=== PATIENT | male | born 1990 | race Caucasian/White ===

== ENCOUNTER 2020-10-18 23:00 | Emergency (ER) | payer SELFPAY ==
[~2020-10-18] VITALS: Ht 182.8 cm; Wt 90.6 kg
[2020-10-18 23:06] VITALS: BP 130/91
--- NOTE | 2020-10-18 23:13 | ED Headache ---
General Chief Complaint: Head/Cervical Problems Stated Complaint: HEADACHE Source: patient Exam Limitations: no limitations History of Present Illness Date Seen by Provider: Oct 18, 2020 Time Seen by Provider: 23:13 Initial Comments 30-year-old male presents with headache. Headache started approximately 30 minutes prior to arrival. Patient reports he has a history of headaches. That this started 30 minutes prior to arrival. He did not try anything for it. Patient reports he was recently seen at [facility] and told it was a "sinus headache" was started on Flonase and given some steroids. Reports he is done with the steroids. Patient reports some photophobia. Patient denies any fever, chills, cough, sore throat. Allergies and Home Medications Allergies Coded Allergies: No Known Drug Allergies (Unverified , 10/18/20) Patient Home Medication List Home Medication List Reviewed: Yes Review of Systems Review of Systems Constitutional: No chills, No fever Eyes: Blurred Vision, Photophobia Respiratory: no symptoms reported Cardiovascular: no symptoms reported Genitourinary: no symptoms reported Musculoskeletal: no symptoms reported Skin: no symptoms reported Psychiatric/Neurological: Headache Past Elrjgmg-Mbsgzg-Gjfkvp Hx Past Med/Social Hx: Reviewed Nursing Past Med/Soc Hx Physical Exam Vital Signs Vital Signs - First Documented 10/18/20 23:06 Temp 36.3 Pulse 77 Resp 18 B/P (MAP) 130/91 (104) Pulse Ox 99 O2 Delivery Room Air Capillary Refill : Height, Weight, BMI Height: '" Weight: lbs. oz. kg; BMI Method: General Appearance: moderate distress HEENT: PERRL/EOMI Neck: full range of motion, supple Cardiovascular: regular rate, rhythm Respiratory: lungs clear, normal breath sounds Gastrointestinal: non tender, soft Extremities: normal range of motion, normal inspection Psychiatric: alert, oriented x 3 Crainal Nerves: normal hearing, normal speech, PERRL Coordination/Gait: normal gait Motor/Sensory: no motor deficit Skin: tattoos/piercings Progress/Results/Core Measures Results/Orders My Orders Orders - GINGER VAZQUEZ DO Ketorolac Injection (Toradol Injection) (10/18/20 23:20) Metoclopramide Injection (Reglan Injecti (10/18/20 23:20) Diphenhydramine Injection (Benadryl Inje (2/27/21 23:20) Ketorolac Injection (Toradol Injection) (10/18/20 23:19) Metoclopramide Injection (Reglan Injecti (10/18/20 23:19) Diphenhydramine Injection (Benadryl Inje (10/18/20 23:19) Vital Signs/I&O 10/18/20 23:06 Temp 36.3 Pulse 77 Resp 18 B/P (MAP) 130/91 (104) Pulse Ox 99 O2 Delivery Room Air Departure Impression Primary Impression: Headache Qualified Codes: R51.9 - Headache, unspecified Disposition: HOME, SELF-CARE Condition: Stable Departure-Patient Inst. Referrals: NO,LOCAL PHYSICIAN (PCP/Family) Primary Care Physician Patient Instructions: Headache, Adult (DC) Add. Discharge Instructions: Follow-up with your primary care provider next week for continuation of care. If your headaches start becoming more frequent please follow-up with your primary care provider for long-term headache management and possible outpatient imaging if warranted. All discharge instructions reviewed with patient and/or family. Voiced understanding. GINGER VAZQUEZ DO Oct 18, 2020 23:13
[2020-10-18] MEDS ORDERED: diphenhydrAMINE 50 MG/ML INJ (BENADRYL) ONE (23:19)
[2020-10-18] MEDS ORDERED: KETOROLAC 60 MG/2 ML VIAL ONE (23:19)
[2020-10-18] MEDS ORDERED: METOCLOPRAMIDE INJ 10 MG/2 ML (REGLAN) ONE (23:19)
[2020-10-18] MEDS ORDERED: diphenhydrAMINE 50 MG/ML INJ (BENADRYL) IM STA (23:20)
[2020-10-18] MEDS ORDERED: METOCLOPRAMIDE INJ 10 MG/2 ML (REGLAN) IM STA (23:20)
[2020-10-18] MEDS ORDERED: KETOROLAC 60 MG/2 ML VIAL IM STA (23:20)
== END 2020-10-18 23:49 | disposition home or self-care (01) ==
LOC: ER FS 23:05
DX: R51.9 Headache, unspecified (principal)
CPT/HCPCS: 99284

== ENCOUNTER 2020-12-04 23:02 | Emergency (ER) | payer SELFPAY ==
[~2020-12-04] VITALS: Ht 182.9 cm; Wt 90.7 kg
[2020-12-04 23:10] VITALS: BP 133/78
--- NOTE | 2020-12-04 23:27 | ED Lower Extremity ---
General Chief Complaint: Lower Extremity Stated Complaint: NAIL IN LEFT FOOT Nursing Triage Note: PT ARRIVED BY PRIVATE VEHICLE WITH CHIEF COMPLAINT OF NAIL IN FOOT. PT STATED ONSET WAS 30 MINUTES AGO WHEN HE WAS MOWING HIS LWN. PT STATED HE STEPPED OVER GRASS AND STEPPED ON THE NAIL. IT IS NO LONGER IN HIS FOOT, BUT HE BROUGHT IT WITH HIM. PT STEPPED ON NAIL WITH LEFT FOOT IN THE HEAL. PT HAS CONTROLLED BLEEDING. PT STATED HE HAS HISTORY OF EAR SURGERIES, SILENT HEART ATTACK, AND IRREGULAR HEART BEAT. PT SMOKES 10 CIGS A DAY, [place], FORMER DRUG USER AND DENIES ALCOHOL. AFTER STEPPING ON NAIL HIS NEIGHBOR BROUGHT HIM HERE. PT IS ALERT, ORIENTED X 4 AND AMBULATORY. REPORT WAS GIVEN TO PROVIDER. Nursing Sepsis Screen: No Definite Risk Source: patient History of Present Illness Date Seen by Provider: Dec 04, 2020 Time Seen by Provider: 23:04 Initial Comments 30-year-old male presenting with puncture wound to his left heel. He states he was walking through grass when he stepped on a fredy nail. He did go through his shoe. He denies any diabetes or high blood pressure. He has no allergies to medications. He has mild pain to the back of his heel where he has a puncture wound. It is on the medial aspect of his left heel. he denies any other injuries. Allergies and Home Medications Allergies Coded Allergies: No Known Drug Allergies (Unverified , 10/18/20) Home Medications Levofloxacin 750 Mg Tablet, 750 MG PO DAILY Prescribed by: JAMMIE ERNANDEZ on 12/04/20 7646 Patient Home Medication List Home Medication List Reviewed: Yes Review of Systems Constitutional: No chills, No fever EENTM: no symptoms reported Respiratory: no symptoms reported Cardiovascular: no symptoms reported Gastrointestinal: no symptoms reported Genitourinary: no symptoms reported Musculoskeletal: other (mild pain at site of the puncture wound) Skin: see HPI Psychiatric/Neurological: Denies Numbness, Denies Tingling Past Krnfyze-Ywgvjm-Yuxgnh Hx Past Med/Social Hx: Reviewed Nursing Past Med/Soc Hx Patient Social History Alcohol Use: Denies Use Type Used: Cigarettes Recent Infectious Disease Expo: No Recent Hopitalizations: No Seasonal Allergies Seasonal Allergies: No Past Medical History Surgeries: Yes (ear surgeries) Respiratory: No Cardiac: No ("silent heart attack") Irregular Heartbeat Neurological: No Genitourinary: No Gastrointestinal: No Musculoskeletal: No Endocrine: No HEENT: No Cancer: No Psychosocial: No Integumentary: No Blood Disorders: No Physical Exam Vital Signs Vital Signs - First Documented 12/04/20 23:10 Temp 36.5 Pulse 93 Resp 20 B/P (MAP) 133/78 (96) Pulse Ox 98 O2 Delivery Room Air Capillary Refill : Less Than 3 Seconds Height, Weight, BMI Height: '" Weight: lbs. oz. kg; 27.00 BMI Method: General Appearance: WD/WN, no apparent distress Cardiovascular: normal peripheral pulses Feet: left foot normal range of motion, left foot abrasions/lacerations (puncture wound to left medial heel), left foot soft tissue tenderness (mild at the site of the left heel puncture wound) Neurologic/Tendon: normal sensation, normal motor functions, normal tendon functions Neurologic/Psychiatric: shareholder II-XII nml as tested, alert, oriented x 3 Skin: warm/dry Progress/Results/Core Measures Results/Orders My Orders Orders - JAMMIE ERNANDEZ MD Levofloxacin Tablet (Levaquin Tablet) (12/04/20 23:34) Dipht,Pertuss(Acell),Tet Adult (Boostrix (12/04/20 23:45) Wound Dressing-Ed (12/04/20 23:34) Medications Given in ED Current Medications Medications Dose Ordered Sig/Clara Route Start Time Stop Time Status Last Admin Dose Admin Diphtheria/ Tetanus/Acell Pertussis 0.5 ml ONCE ONCE IM 12/04/20 23:45 12/04/20 23:46 DC 12/04/20 23:52 0.5 ML Vital Signs/I&O 12/04/20 23:10 Temp 36.5 Pulse 93 Resp 20 B/P (MAP) 133/78 (96) Pulse Ox 98 O2 Delivery Room Air Blood Pressure Mean: 96 Progress Progress Note : Progress Note Wound cleaned with chlorhexidine by RN. Dress with antibiotic ointment and bandage. Update tetanus booster. Per recommendations from Up To Date online medical reference will use Levaquin for 5 day course to help cover for pseudomonas with puncture through his shoe. Counseled on follow up and return precautions. Departure Impression Primary Impression: Puncture wound of foot, left Qualified Codes: S91.332A - Puncture wound without foreign body, left foot, initial encounter Disposition: 01 HOME, SELF-CARE Condition: Stable Departure-Patient Inst. Decision time for Depature: 23:41 Referrals: YSABEL AGUILLON APRN (PCP/Family) Primary Care Physician Patient Instructions: Wound Care ED Add. Discharge Instructions: Take antibiotics to help prevent infection. Keep area clean with soap and water and apply antibiotic ointment 2-3 times a day with a bandage covering wound. If you have redness streaking up the leg, fever over 101 F, or pus draining from the wound then return or seek medical care for possible IV antibiotics All discharge instructions reviewed with patient and/or family. Voiced understanding. Scripts Levofloxacin (Levofloxacin) 750 Mg Tablet 750 MG PO DAILY for Puncture wound for 5 Days, #4 TAB 0 Refills Prov: JAMMIE ERNANDEZ MD 12/04/20 Images Extremities-Lower 1 - Puncture Wound (small puncture wound to medial left heel), Tenderness (mild tenderness to area of puncture wound. ) JAMMIE ERNANDEZ MD Dec 04, 2020 23:27
[2020-12-04] MEDS ORDERED: LEVO750T39 PO (23:41)
[2020-12-04] MEDS ORDERED: TETANUS,DIPTH,PERTUSS P/F (BOOSTRIX) 0.5 ML VIAL IM ONE (23:45)
== END 2020-12-04 23:50 | disposition home or self-care (01) ==
LOC: EDUNIT# 23:02 → ER FS 23:05
DX: S91.332A Puncture wound without foreign body, left foot, initial encounter (principal); Z23 Encounter for immunization; W45.0XXA Nail entering through skin, initial encounter
CPT/HCPCS: 90715; 99284

== ENCOUNTER 2021-05-01 17:33 | Emergency (ER) | payer SELFPAY ==
[~2021-05-01] VITALS: Ht 182.9 cm; Wt 90.9 kg
[~2021-05-01 17:33] MED LIST: LEVO750T39 PO
[2021-05-01] MEDS ORDERED: methylPREDNISolone 125 MG (Solu-MEDROL) VIAL ONE (17:40)
[2021-05-01] MEDS ORDERED: diphenhydrAMINE 50 MG/ML INJ (BENADRYL) ONE (17:40)
[2021-05-01] MEDS ORDERED: FAMOTIDINE 20MG/2ML IV (PEPCID) ONE (17:40)
--- NOTE | 2021-05-01 17:42 | ED General ---
General Stated Complaint: ALLERGIC REACTION TO MED Source of Information: Patient Exam Limitations: No Limitations History of Present Illness Date Seen by Provider: May 01, 2021 Time Seen by Provider: 17:40 Initial Comments To ER by private vehicle with reports of allergic reaction to Augmentin. He took his first pill about 20 minutes prior to the onset of this itching and burning sensation diffusely. That started about 30 minutes ago. He has some redness to his palms, slight erythema to his torso. He is on Augmentin for an ear infection and tooth infection he states. He typically takes plain amoxicill in and has taken this many times without any troubles. He has never had Augmentin before. Timing/Duration: 1-2 Days Severity: Moderate Associated Systoms: Denies Symptoms Allergies and Home Medications Allergies Coded Allergies: No Known Drug Allergies (Unverified , 10/18/20) Patient Home Medication List Home Medication List Reviewed: Yes Levofloxacin (Levofloxacin) 750 Mg Tablet, 750 MG PO DAILY Prescribed by: JAMMIE ERNANDEZ on 12/04/20 1201 Review of Systems Review of Systems Constitutional: see HPI EENTM: see HPI Respiratory: no symptoms reported Cardiovascular: no symptoms reported Genitourinary: no symptoms reported Musculoskeletal: no symptoms reported Skin: see HPI, pruritus Psychiatric/Neurological: No Symptoms Reported Hematologic/Lymphatic: No Symptoms Reported Immunological/Allergic: no symptoms reported Past Xirbpig-Tjfwzz-Twwcka Hx Seasonal Allergies Seasonal Allergies: No Past Medical History Surgeries: Yes (ear surgeries) Respiratory: No Cardiac: No ("silent heart attack") Irregular Heartbeat Neurological: No Genitourinary: No Gastrointestinal: No Musculoskeletal: No Endocrine: No HEENT: No Cancer: No Psychosocial: No Integumentary: No Blood Disorders: No Physical Exam Vital Signs Vital Signs - First Documented 05/01/21 17:35 Temp 36.8 Pulse 84 Resp 26 B/P (MAP) 125/113 (117) Pulse Ox 96 O2 Delivery Room Air Capillary Refill : Height, Weight, BMI Height: '" Weight: lbs. oz. kg; 27.00 BMI Method: General Appearance: No Apparent Distress, WD/WN Eyes: Bilateral Eye Normal Inspection, Bilateral Eye PERRL, Bilateral Eye EOMI HEENT: PERRL/EOMI, TMs Normal Neck: Full Range of Motion, Normal Inspection Respiratory: No Accessory Muscle Use, No Respiratory Distress Cardiovascular: Regular Rate, Rhythm, Normal Peripheral Pulses Gastrointestinal: Non Tender, Soft Extremity: Normal Capillary Refill, Normal Inspection Neurologic/Psychiatric: Alert, Oriented x3 Skin: Normal Color, Warm/Dry Progress/Results/Core Measures Suspected Sepsis SIRS Temperature: Pulse: Respiratory Rate: Blood Pressure / Mean: Results/Orders My Orders Orders - COLLIN SIMENTAL APRN Methylprednisolone Sod Succ (Solu-Medrol (05/01/21 17:45) Famotidine Injection (Pepcid Injection) (05/01/21 17:45) Diphenhydramine Injection (Benadryl Inje (05/01/21 17:45) Ed Iv/Invasive Line Start (05/01/21 17:39) Medications Given in ED Current Medications Medications Dose Ordered Sig/Clara Route Start Time Stop Time Status Last Admin Dose Admin Diphenhydramine HCl 25 mg ONCE ONCE IVP 05/01/21 17:45 05/01/21 17:46 DC 05/01/21 17:40 25 MG Famotidine 20 mg ONCE ONCE IVP 05/01/21 17:45 05/01/21 17:46 DC 05/01/21 17:40 20 MG Methylprednisolone Sodium Succinate 125 mg ONCE ONCE IVP 05/01/21 17:45 05/01/21 17:46 DC 05/01/21 17:40 125 MG Vital Signs/I&O 05/01/21 17:35 Temp 36.8 Pulse 84 Resp 26 B/P (MAP) 125/113 (117) Pulse Ox 96 O2 Delivery Room Air Capillary Refill : Departure Communication (Admissions) 1842-reports that he feels great, no itching no shortness of breath. Ready to go home. Impression Primary Impression: Drug reaction Disposition: 01 HOME, SELF-CARE Condition: Stable Departure-Patient Inst. Decision time for Depature: 18:43 Referrals: YSABEL AGUILLON APRN (PCP/Family) Primary Care Physician Patient Instructions: Drug Allergy Add. Discharge Instructions: 1. Take a Benadryl every 4-6 hours as needed for any recurrent itching. Scripts Amoxicillin (Amoxicillin) 500 Mg Capsule 500 MG PO TID, #21 CAP 0 Refills Prov: COLLIN SIMENTAL APRN 05/01/21 COLLIN SIMENTAL APRN May 01, 2021 17:42
[2021-05-01] MEDS ORDERED: diphenhydrAMINE 50 MG/ML INJ (BENADRYL) IVP ONE (17:45)
[2021-05-01] MEDS ORDERED: FAMOTIDINE 20MG/2ML IV (PEPCID) IVP ONE (17:45)
[2021-05-01] MEDS ORDERED: methylPREDNISolone 125 MG (Solu-MEDROL) VIAL IVP ONE (17:45)
[2021-05-01] MEDS ORDERED: AMOX500C2 PO (18:44)
[2021-05-01 18:50] VITALS: BP 120/85
== END 2021-05-01 18:50 | disposition home or self-care (01) ==
LOC: EDUNIT# 17:33 → ER 17:36
DX: L29.9 Pruritus, unspecified (principal); T36.0X5A Adverse effect of penicillins, initial encounter

== ENCOUNTER 2021-05-26 18:31 | Emergency (ER) | payer SELFPAY ==
[~2021-05-26] VITALS: Ht 182 cm; Wt 94.9 kg
[~2021-05-26 18:31] MED LIST changes: +AMOX500C2 PO
[2021-05-26] MEDS ORDERED: diphenhydrAMINE 50 MG/ML INJ (BENADRYL) IM ONE (19:15)
[2021-05-26] MEDS ORDERED: FAMOTIDINE 20 MG (PEPCID) TABLET PO ONE (19:15)
[2021-05-26] MEDS ORDERED: AZIT250T12 PO ×2 (19:19→19:53)
--- NOTE | 2021-05-26 19:20 | ED Integumentary General ---
General Chief Complaint: Allergic Reaction Stated Complaint: ALLERGIC REACTION Nursing Triage Note: PT REPORTS TO ER WITH ITCHING FROM PERCIEVED ALLERGIC REACTION FROM AMOXICILLIN. PT IS ON AMOXICILLIN FOR SINUS INFECTION. PT REPORTS THAT THIS HAPPENED LAST TIME HE TOOK THE MEDICATION. NO RESPIRATORY DIFFICULTY NOTED. Source: patient Exam Limitations: no limitations History of Present Illness Date Seen by Provider: May 26, 2021 Time Seen by Provider: 18:59 Initial Comments Patient to ER by private conveyance from home with chief complaint of itchy rash shortly after taking a dose of amoxicillin for sinus infection. Sinus infection symptoms include pressure, nasal drainage, sore throat, ear pain right worse than left starting a few days ago. No further testing was done at that time. Patient's not having swelling tongue, difficulty breathing, stridor, wheezing, difficulty swallowing or drooling. He says when he took some Augmentin a few months ago for similar issues he had a itchy rash and scratchy throat similar to this. He has never had anaphylaxis. Allergies and Home Medications Allergies Coded Allergies: amoxicillin (Verified Allergy, Unknown, 05/01/21) clavulanic acid (Verified Allergy, Unknown, 05/01/21) Patient Home Medication List Home Medication List Reviewed: Yes Amoxicillin (Amoxicillin) 500 Mg Capsule, 500 MG PO TID Prescribed by: COLLIN SIMENTAL on 05/01/21 184 Azithromycin (Azithromycin) 250 Mg Tablet, 250 MG PO UD Prescribed by: RYAN TREVINO on 05/26/21 1919 Levofloxacin (Levofloxacin) 750 Mg Tablet, 750 MG PO DAILY Prescribed by: JAMMIE ERNANDEZ on 12/04/20 2341 Review of Systems Review of Systems Constitutional: No chills, No fever, No malaise EENTM: No ear discharge, No ear pain Respiratory: No cough, No short of breath Cardiovascular: No chest pain, No edema Gastrointestinal: No abdominal pain, No constipation, No diarrhea Genitourinary: No discharge, No dysuria Musculoskeletal: No back pain, No joint pain All Other Systems Reviewed Negative Unless Noted: Yes Past Hexferf-Zejflg-Xbxhsk Hx Patient Social History Tobacco Use?: Yes Smoking Status: Current Everyday Smoker Substance use?: No Alcohol Use?: No Pt feels they are or have been: No Immunizations Up To Date First/Initial COVID19 Vaccinat: NA Second COVID19 Vaccination Frank: NONE Seasonal Allergies Seasonal Allergies: No Past Medical History Surgery/Hospitalization HX: TUBES IN EARS Surgeries: Yes (ear surgeries) Respiratory: No Cardiac: No ("silent heart attack") Irregular Heartbeat Neurological: No Genitourinary: No Gastrointestinal: No Musculoskeletal: No Endocrine: No HEENT: No Cancer: No Psychosocial: No Integumentary: No Blood Disorders: No Physical Exam Vital Signs Vital Signs - First Documented 05/26/21 18:42 Temp 36.7 Pulse 98 Resp 16 B/P (MAP) 112/75 (87) Pulse Ox 98 O2 Delivery Room Air Capillary Refill : Less Than 3 Seconds General Appearance: WD/WN, no apparent distress HEENT: PERRL/EOMI, pharynx normal, TM abnormal (R) (Bilateral clear fluid effusion with some mild injection but no loss of the anatomy on the right TM), TM abnormal (L) (Clear fluid effusion) Neck: full range of motion, supple, normal inspection Cardiovascular: normal peripheral pulses, regular rate, rhythm Respiratory: lungs clear, normal breath sounds, no respiratory distress, no accessory muscle use, other (Negative for stridor) Neurologic/Psychiatric: alert, oriented x 3 Skin: warm/dry, rash (Faint macular pruritic rash over extremities and trunk) Skin Problem Location: generalized Progress/Results/Core Measures Results/Orders My Orders Orders - RYAN TREVINO Diphenhydramine Injection (Benadryl Inje (05/26/21 19:15) Famotidine Tablet (Pepcid Tablet) (05/26/21 19:15) Medications Given in ED Current Medications Medications Dose Ordered Sig/Clara Route Start Time Stop Time Status Last Admin Dose Admin Diphenhydramine HCl 25 mg ONCE ONCE IM 05/26/21 19:15 05/26/21 19:16 DC 05/26/21 19:24 25 MG Famotidine 20 mg ONCE ONCE PO 05/26/21 19:15 05/26/21 19:16 DC 05/26/21 19:22 20 MG Vital Signs/I&O 05/26/21 18:42 Temp 36.7 Pulse 98 Resp 16 B/P (MAP) 112/75 (87) Pulse Ox 98 O2 Delivery Room Air Blood Pressure Mean: 87 Progress Progress Note #1: Time: 19:16 Progress Note We do not have any Claritin available. We will give him a shot of IM 25 mg Benadryl, Pepcid p.o. 20 mg and instruct him to keep up the antihistamine blocka de. After a observation. If he is not demonstrating any evidence of anaphylaxis then will allow him to go home and switch his antibiotics to azithromycin Progress Note #2: Time: 19:52 Progress Note On serial examination his itching is gone his rash is clearing up and he is not having any nausea, difficulty swallowing or breathing stridor or wheezing. Are going to allow him to go home and send his prescription to the pharmacy. Departure Impression Primary Impression: Allergic reaction caused by a drug Qualified Codes: T78.40XA - Allergy, unspecified, initial encounter Additional Impression: Sinus infection Qualified Codes: J01.00 - Acute maxillary sinusitis, unspecified Disposition: HOME, SELF-CARE Condition: Stable Departure-Patient Inst. Decision time for Depature: 19:53 Referrals: ADONIS DARBY MD (PCP) Primary Care Physician PATRICIO HAWKINS APRN (Family) Primary Care Physician Patient Instructions: Drug Allergy, Sinusitis, Adult (DC) Add. Discharge Instructions: Drink plenty of fluids to stay well-hydrated. supervisor multifocal lens a bottle of Claritin/loratadine or Zyrtec/cetirizine and take 10 mg once or twice a day as necessary to control the itching rash. For breakthrough itching you may take Benadryl 1 to 2 tablets every 6 hours. This may cause drowsiness. I also suggest you take Pepcid 20 mg twice a day for its antiitch properties. Pepcid is typically for acid reflux but will also help with your rash. Promptly return to the ER if you are having difficulty swallowing, breathing or stridorous sounds. Take the azithromycin as prescribed. 2 tablets today and 1 tablet every day afterwards until it is gone. All discharge instructions reviewed with patient and/or family. Voiced understanding. Scripts Azithromycin (Azithromycin) 250 Mg Tablet 250 MG PO UD, #6 TAB 0 Refills TAKE 2 TABLETS ON DAY ONE THEN TAKE 1 TABLET DAILY FOR FOUR MORE DAYS Prov: RYAN TREVINO 05/26/21 Work/School Note: Work Release Form Date Seen in the Emergency Department: May 26, 2021 Return to Work: May 28, 2021 Restrictions: No Restrictions RYAN TREVINO May 26, 2021 19:20
[2021-05-26 22:12] VITALS: BP 115/70
== END 2021-05-26 20:24 | disposition home or self-care (01) ==
LOC: EDUNIT# 18:31 → ER FS 18:32
DX: R21 Rash and other nonspecific skin eruption (principal); T36.0X5A Adverse effect of penicillins, initial encounter; J32.9 Chronic sinusitis, unspecified; I25.2 Old myocardial infarction; F17.290 Nicotine dependence, other tobacco product, uncomplicated
CPT/HCPCS: 99284

== ENCOUNTER 2021-12-05 09:05 | Emergency (ER) | payer BC, OTHER ==
[~2021-12-05] VITALS: Ht 185.4 cm; Wt 94.9 kg
[~2021-12-05 09:05] MED LIST changes: +AZIT250T12 PO
[2021-12-05 09:24] LABS: BASOPHILS # (AUTO) 0.1 10^3/uL (0.0-0.1); BASOPHILS % (AUTO) 1 % (0-10); EOSINOPHILS # (AUTO) 0.3 10^3/uL (0.0-0.3); EOSINOPHILS % (AUTO) 3 % (0-10); HEMATOCRIT 46 % (40-54); HEMOGLOBIN 15.9 g/dL (13.3-17.7); LYMPHOCYTES % (AUTO) 23 % (12-44); MEAN CORPUSCULAR HEMOGLOBIN 32 pg (25-34); MEAN CORPUSCULAR HGB CONC 34 g/dL (32-36); MEAN CORPUSCULAR VOLUME 93 fL (80-99); MEAN PLATELET VOLUME 8.7 fL (9.0-12.2); MONOCYTES # (AUTO) 0.9 10^3/uL (0.0-1.0); MONOCYTES % (AUTO) 10 % (0-12); NEUTROPHILS # (AUTO) 5.4 10^3/uL (1.8-7.8); NEUTROPHILS % (AUTO) 62 % (42-75); PLATELET COUNT 346 10^3/uL (130-400); WHITE BLOOD COUNT 8.7 10^3/uL (4.3-11.0)
--- NOTE | 2021-12-05 09:28 | ED Chest Pain ---
General Chief Complaint: Chest Pain Stated Complaint: CHEST PAIN Source: patient History of Present Illness Date Seen by Provider: Dec 05, 2021 Time Seen by Provider: 09:05 Initial Comments This 31 y/o male smoker presents w/ acute onset of non-radiating 5/10 para- central dull chest pressure at rest 2 hours [employer]. He has mild SOA with it but no cough, fever, N/V, or diaphoresis. He reports a previous "silent heart attack" in [facility] when he was still doing IVDA-meth. He claims sobriety x > 6 months. He denies HTN, DM, or known HLD. He has stress ECHO in [place] that allegedly was normal except a "scar" on his heart. No heart cath. No stent. The only drugs he nows admits to using is THC and occasion prescribed antihistamine Timing/Duration: 1-3 hours Severity/Quality: moderate Location: central Radiation: no radiation Activities at Onset: none Prior CP/Workup: cardiac cath, cardiolye scan, echocardiography, heart attack Modifying Factors: worse with antacids, worse with breathing, worse with coughing, worse with defecting, worse with eating, worse with exercise; improves with lying down; worse with morphine, worse with movement, worse with nitroglycerin, worse with oxygen, worse with palpation; improves with rest Associated Symptoms: No abdominal pain, No back pain, No diaphoresis, No fever/chills, No nausea/vomiting, No rash; shortness of breath; No syncope Allergies and Home Medications Allergies Coded Allergies: amoxicillin (Verified Allergy, Unknown, 05/01/21) clavulanic acid (Verified Allergy, Unknown, 05/01/21) Patient Home Medication List Home Medication List Reviewed: Yes Amoxicillin (Amoxicillin) 500 Mg Capsule, 500 MG PO TID Prescribed by: COLLIN SMIENTAL on 05/01/211843 Azithromycin (Azithromycin) 250 Mg Tablet, 250 MG PO UD Prescribed by: RYAN TREVINO on 05/26/211952 Levofloxacin (Levofloxacin) 750 Mg Tablet, 750 MG PO DAILY Prescribed by: JAMMIE ERNANDEZ on 12/04/20 2341 Review of Systems Review of Systems Constitutional: no symptoms reported EENTM: No Symptoms Reported Respiratory: Denies Cough; Shortness of Air; Denies Stridor, Denies Wheezing Cardiovascular: Chest Pain; Denies Edema, Denies Irregular Heart Rate, Denies Lightheadedness, Denies Palpitations, Denies Syncope Gastrointestinal: No Symptoms Reported Genitourinary: No Symptoms Reported Musculoskeletal: no symptoms reported Skin: no symptoms reported Psychiatric/Neurological: No Symptoms Reported Hematologic/Lymphatic: No Symptoms Reported Past Azaytac-Mapgkr-Psylee Hx Patient Social History Tobacco Use?: Yes Tobacco type used: Cigarettes Smoking Status: Current Everyday Smoker Use of E-Cig and/or Vaping dev: No Substance use?: Yes Substance type: Amphetamines (in past), Methamphetamine (in past), Nicotine, Marijuana Additional substance use comme: Former IV methamphetamine user. Last used 1 year ago Alcohol Use?: No Pt feels they are or have been: No Immunizations Up To Date Influenza Vaccine Up-to-Date: No; Not Current First/Initial COVID19 Vaccinat: NA Second COVID19 Vaccination Frank: NA Third COVID19 Vaccination Date: NA Seasonal Allergies Seasonal Allergies: Yes Past Medical History Surgery/Hospitalization HX: TUBES IN EARS, tympanic membrane repair. [place] Surgeries: Yes (ear surgeries) Ear Surgery (multiple T tubes follow by skin graft to TMs) Respiratory: No Cardiac: No ("silent heart attack") Irregular Heartbeat Neurological: No Genitourinary: No Gastrointestinal: No Musculoskeletal: No Endocrine: No HEENT: No Cancer: No Psychosocial: No Integumentary: No Blood Disorders: No Physical Exam Vital Signs Vital Signs - First Documented 12/05/21 09:05 Temp 36.2 Pulse 99 Resp 18 B/P (MAP) 129/85 (100) Pulse Ox 98 O2 Delivery Room Air Capillary Refill : Less Than 3 Seconds Height, Weight, BMI Height: '" Weight: lbs. oz. kg; 28.00 BMI Method: General Appearance: No Apparent Distress, WD/WN HEENT: Normal ENT Inspection Neck: Normal Inspection, Non Tender, Supple Respiratory: Chest Non Tender, Lungs Clear, Normal Breath Sounds, No Accessory Muscle Use, No Respiratory Distress Cardiovascular: Regular Rate, Rhythm, No Edema, No Gallop, No JVD, No Murmur, Normal Peripheral Pulses Gastrointestinal: Normal Bowel Sounds, No Pulsatile Mass, Non Tender, Soft Extremity: Normal Capillary Refill, Normal Inspection, Normal Range of Motion, Non Tender, No Calf Tenderness Neurologic/Psychiatric: Alert, Oriented x3 Skin: Normal Color, Warm/Dry, Tattoos/Piercings (copious) Progress/Results/Core Measures Results/Orders Lab Results Laboratory Tests Test 12/05/21 09:12 12/05/21 09:30 12/05/21 11:00 Range/Units White Blood Count 8.7 4.3-11.0 10^3/uL Red Blood Count 4.98 4.30-5.52 10^6/uL Hemoglobin 15.9 13.3-17.7 g/dL Hematocrit 46 40-54 % Mean Corpuscular Volume 93 80-99 fL Mean Corpuscular Hemoglobin 32 25-34 pg Mean Corpuscular Hemoglobin Concent 34 32-36 g/dL Red Cell Distribution Width 12.5 10.0-14.5 % Platelet Count 346 130-400 10^3/uL Mean Platelet Volume 8.7 L 9.0-12.2 fL Immature Granulocyte % (Auto) 1 % Neutrophils (%) (Auto) 62 42-75 % Lymphocytes (%) (Auto) 23 12-44 % Monocytes (%) (Auto) 10 0-12 % Eosinophils (%) (Auto) 3 0-10 % Basophils (%) (Auto) 1 0-10 % Neutrophils # (Auto) 5.4 1.8-7.8 10^3/uL Lymphocytes # (Auto) 2.0 1.0-4.0 10^3/uL Monocytes # (Auto) 0.9 0.0-1.0 10^3/uL Eosinophils # (Auto) 0.3 0.0-0.3 10^3/uL Basophils # (Auto) 0.1 0.0-0.1 10^3/uL Immature Granulocyte # (Auto) 0.0 0.0-0.1 10^3/uL D-Dimer 0.21 0.00-0.49 UG/ML Sodium Level 141 135-145 MMOL/L Potassium Level 4.0 3.6-5.0 MMOL/L Chloride Level 104 98-107 MMOL/L Carbon Dioxide Level 27 21-32 MMOL/L Anion Gap 10 5-14 MMOL/L Blood Urea Nitrogen 18 7-18 MG/DL Creatinine 0.96 0.60-1.30 MG/DL Estimat Glomerular Filtration Rate 108 BUN/Creatinine Ratio 19 Glucose Level 69 L 70-105 MG/DL Calcium Level 9.6 8.5-10.1 MG/DL Corrected Calcium 8.5-10.1 MG/DL Total Bilirubin 0.4 0.1-1.0 MG/DL Aspartate Amino Transf (AST/SGOT) 18 5-34 U/L Alanine Aminotransferase (ALT/SGPT) 29 0-55 U/L Alkaline Phosphatase 110 40-136 U/L Troponin I < 0.30 < 0.30 <0.30 NG/ML Total Protein 7.8 6.4-8.2 GM/DL Albumin 4.9 H 3.2-4.5 GM/DL Urine Color YELLOW Urine Clarity CLEAR Urine pH 6.0 5-9 Urine Specific Hodges 1.025 H 1.016-1.022 Urine Protein NEGATIVE NEGATIVE Urine Glucose (UA) NEGATIVE NEGATIVE Urine Ketones NEGATIVE NEGATIVE Urine Nitrite NEGATIVE NEGATIVE Urine Bilirubin NEGATIVE NEGATIVE Urine Urobilinogen 0.2 < = 1.0 MG/DL Urine Leukocyte Esterase NEGATIVE NEGATIVE Urine RBC (Auto) NEGATIVE NEGATIVE Urine RBC NONE /HPF Urine WBC NONE /HPF Urine Crystals NONE /LPF Urine Bacteria TRACE /HPF Urine Casts PRESENT /LPF Urine Hyaline Casts 0-2 H /LPF Urine Mucus LARGE H /LPF Urine Culture Indicated NO Urine Opiates Screen NEGATIVE NEGATIVE Urine Oxycodone Screen NEGATIVE NEGATIVE Urine Methadone Screen NEGATIVE NEGATIVE Urine Propoxyphene Screen NEGATIVE NEGATIVE Urine Barbiturates Screen NEGATIVE NEGATIVE Ur Tricyclic Antidepressants Screen NEGATIVE NEGATIVE Urine Phencyclidine Screen NEGATIVE NEGATIVE Urine Amphetamines Screen NEGATIVE NEGATIVE Urine Methamphetamines Screen NEGATIVE NEGATIVE Urine Benzodiazepines Screen NEGATIVE NEGATIVE Urine Cocaine Screen NEGATIVE NEGATIVE Urine Cannabinoids Screen POSITIVE H NEGATIVE My Orders Orders - MAEVE ANDERSON MD Troponin I Aracelis (12/05/21 09:19) Chest 1 View Ap/Pa Only (12/05/21 09:19) Ekg Tracing (12/05/21 09:19) Monitor-Rhythm Ecg Trace Only (12/05/21 09:19) Iv Heplock-Insert (Order) (12/05/21:19) Cbc With Automated Diff (12/05/21:19) Comprehensive Metabolic Panel (12/05/21 09:19) Fibrin Degradation Products (12/05/21 09:19) Drug Screen Stat (Urine) (12/05/21 09:19) Aspirin Chewable Tablet (Baby Aspirin Ch (12/05/21 09:30) Nitroglycerin Ointment (Nitrobid Ointme (12/05/21 09:30) Urinalysis (12/05/21 09:30) Antacid Suspension (Mylanta Suspension (12/05/21 10:15) Sucralfate Tablet (Carafate Tablet) (12/05/21 10:15) Lidocaine 2% Viscous 15 Ml (Xylocaine Vi (12/05/21 10:15) Troponin I Fs (12/05/21 10:55) Medications Given in ED Current Medications Medications Dose Ordered Sig/Clara Route Start Time Stop Time Status Last Admin Dose Admin Al Hydrox/Mg Hydrox/Simethicone 30 ml ONCE ONCE PO 12/05/21 10:15 12/05/21 10:16 DC 12/05/21 10:15 30 ML Aspirin 324 mg ONCE ONCE PO 12/05/21 09:30 12/05/21 09:31 DC 12/05/21 09:29 324 MG Lidocaine HCl 15 ml ONCE ONCE PO 12/05/21 10:15 12/05/21 10:16 DC 12/05/21 10:15 15 ML Nitroglycerin 0.5 inch ONCE ONCE TOP 12/05/21 09:30 12/05/21 09:31 DC 12/05/21 09:30 0.5 INCH Sucralfate 1 gm ONCE ONCE PO 12/05/21 10:15 12/05/21 10:16 DC 12/05/21 10:15 1 GM Vital Signs/I&O 12/05/21 09:05 Temp 36.2 Pulse 99 Resp 18 B/P (MAP) 129/85 (100) Pulse Ox 98 O2 Delivery Room Air Initial ECG Impression Date: Dec 05, 2021 Initial ECG Impression Time: 09:32 Initial ECG Rate: 95 Initial ECG Rhythm: Normal Sinus Initial ECG Intervals: QRS (RBBB) Initial ECG Impression: Nonspecific Changes (RBBB w/ T wave inversion in III, V1. early precordial transition; No STEMI or ectopy or definitive ischemia) Initial ECG Comparisson: No Previous ECG Available Departure Impression Primary Impression: Atypical chest pain Disposition: 01 HOME, SELF-CARE Condition: Improved Departure-Patient Inst. Decision time for Depature: 11:56 Referrals: PATRICIO HAWKINS APRN (PCP) Primary Care Physician [facility]/[place] (Family) Primary Care Physician Patient Instructions: Chest Pain That Is Not Caused by the Heart (DC) Add. Discharge Instructions: At this time all tests are NEGATIVE meaning there is no sign of heart attack, blood clot, pneumonia, or collapsed lung as possible causes of your chest pain. Under this circumstance it is reasonable to go home and rest and arrange prompt follow-up care with your doctor tomorrow. Return to ER if worse or new symptoms All discharge instructions reviewed with patient and/or family. Voiced understanding. MAEVE ANDERSON MD Dec 05, 2021 09:28
[2021-12-05] MEDS ORDERED: NITROGLYCERIN 2% OINT 1 GM UNIT DOSE PACKET TOP ONE (09:30)
[2021-12-05] MEDS ORDERED: ASPIRIN 81 MG CHEW (CHILDREN'S ASA) PO ONE (09:30)
[2021-12-05 09:46] LABS: ALANINE AMINOTRANSFERASE 29 U/L (0-55); ALBUMIN 4.9 GM/DL (3.2-4.5); ALKALINE PHOSPHATASE 110 U/L (40-136); BILIRUBIN,TOTAL 0.4 MG/DL (0.1-1.0); BUN/CREATININE RATIO 19; CALCIUM 9.6 MG/DL (8.5-10.1); CARBON DIOXIDE 27 MMOL/L (21-32); CHLORIDE 104 MMOL/L (98-107); CREATININE SERUM 0.96 MG/DL (0.60-1.30); GFR ESTIMATED 108; GLUCOSE 69 MG/DL (70-105); SODIUM 141 MMOL/L (135-145); TOTAL PROTEIN 7.8 GM/DL (6.4-8.2)
[2021-12-05 09:47] LABS: AMPHETAMINE SCREEN, URINE NEGATIVE (NEGATIVE); BARBITURATE SCREEN URINE NEGATIVE (NEGATIVE); BENZODIAZEPINES SCREEN URINE NEGATIVE (NEGATIVE); CANNABINOID SCREEN, URINE POSITIVE (NEGATIVE); COCAINE SCREEN URINE NEGATIVE (NEGATIVE); METHADONE STAT NEGATIVE (NEGATIVE); METHAMPHETAMINE SCREEN URINE S NEGATIVE (NEGATIVE); OPIATE SCREEN URINE NEGATIVE (NEGATIVE); OXYCODONE STAT NEGATIVE (NEGATIVE); PROPOXYPHENE STAT NEGATIVE (NEGATIVE); TRICYCLIC ANTIDEPRESSANTS SCRE NEGATIVE (NEGATIVE)
[2021-12-05 09:48] LABS: BACTERIA,URINE TRACE /HPF; BILIRUBIN,URINE NEGATIVE (NEGATIVE); CLARITY,URINE CLEAR; COLOR,URINE YELLOW; GLUCOSE, URINE (UA) NEGATIVE (NEGATIVE); HYALINE CASTS, URINE 0-2 /LPF; KETONES,URINE NEGATIVE (NEGATIVE); LEUKOCYTE ESTERASE ,URINE NEGATIVE (NEGATIVE); NITRITE,URINE NEGATIVE (NEGATIVE); PROTEIN,URINE NEGATIVE (NEGATIVE)
--- NOTE | 2021-12-05 09:58 | Diagnostic Imaging Report ---
EXAM: CHEST 1 VIEW AP/PA ONLY INDICATION: Chest pain. COMPARISON: None. FINDINGS: Normal heart size and central pulmonary vascularity. No focal pulmonary opacity. No pleural effusion or pneumothorax. No acute osseous findings. IMPRESSION: No acute cardiopulmonary findings. Dictated by: Dictated on workstation # [id number]
[2021-12-05] MEDS ORDERED: SUCRALFATE 1 GM (CARAFATE) TAB PO ONE (10:15)
[2021-12-05] MEDS ORDERED: ANTACID SUSP 30 ML UDC (MYLANTA) PO ONE (10:15)
[2021-12-05] MEDS ORDERED: LIDOCAINE 2% VISCOUS 15 ML UDC PO ONE (10:15)
[2021-12-05 12:05] VITALS: BP 123/62
== END 2021-12-05 12:06 | disposition home or self-care (01) ==
LOC: EDUNIT# 09:05 → ER FS 09:06
DX: R07.89 Other chest pain (principal); I25.2 Old myocardial infarction; F17.210 Nicotine dependence, cigarettes, uncomplicated
CPT/HCPCS: 36415; 71045; 80053; 80306; 81000; 84484; 85025; 85379; 93005; 93041

== ENCOUNTER 2022-08-25 21:52 | Emergency (ER) | payer BC, MEDICAID ==
[~2022-08-25] VITALS: Ht 185.4 cm; Wt 105.2 kg
[~2022-08-25 21:52] MED LIST changes: +LEVO750T PO; -LEVO750T39 PO
--- NOTE | 2022-08-25 22:13 | ED General ---
General Stated Complaint: HEADACHE Source of Information: Patient Exam Limitations: No Limitations History of Present Illness Date Seen by Provider: Aug 25, 2022 Time Seen by Provider: 21:50 Initial Comments Patient is a 32-year-old male with history of cluster headaches who presents with nightly acute onset left islam region starting 3 hours prior to to a rrival. Pain is severe, unilateral and stabbing. Headache is severe and unrelenting. Patient took Tylenol and ibuprofen prior to ED arrival. Patient has headache for days at a time for several days with prolonged breaks in between. Reports light sensitivity and nausea. No vomiting. Patient started spearing headaches in his early 20s. Has not been formally diagnosed or treated by headaches. No other symptoms or complaints Timing/Duration: 1-3 Hours Severity: Severe Modifying Factors: improves with Other Associated Systoms: Other Allergies and Home Medications Allergies Coded Allergies: amoxicillin (Verified Allergy, Unknown, 05/01/21) clavulanic acid (Verified Allergy, Unknown, 05/01/21) Patient Home Medication List Home Medication List Reviewed: Yes Amoxicillin (Amoxicillin) 500 Mg Capsule, 500 MG PO TID Prescribed by: COLLIN SIMENTAL on 05/01/211843 Azithromycin (Azithromycin) 250 Mg Tablet, 250 MG PO UD Prescribed by: RYAN TREVINO on 05/26/211952 Levofloxacin (Levofloxacin) 750 Mg Tablet, 750 MG PO DAILY Prescribed by: JAMMIE ERNANDEZ on 12/04/20 2341 Review of Systems Review of Systems Constitutional: see HPI EENTM: see HPI Respiratory: see HPI Cardiovascular: no symptoms reported Psychiatric/Neurological: See HPI Past Uzpakjq-Acneet-Ykdiqt Hx Patient Social History Tobacco Use?: No Immunizations Up To Date First/Initial COVID19 Vaccinat: NA Second COVID19 Vaccination Frank: NA Third COVID19 Vaccination Date: NA Seasonal Allergies Seasonal Allergies: Yes Past Medical History Surgery/Hospitalization HX: TUBES IN EARS, tympanic membrane repair. [place] Surgeries: Yes (ear surgeries) Ear Surgery Respiratory: No Cardiac: No ("silent heart attack") Irregular Heartbeat Neurological: No Genitourinary: No Gastrointestinal: No Musculoskeletal: No Endocrine: No HEENT: No Cancer: No Psychosocial: No Integumentary: No Blood Disorders: No Physical Exam Vital Signs Capillary Refill : Height, Weight, BMI Height: '" Weight: lbs. oz. kg; 27.00 BMI Method: General Appearance: Moderate Distress (secpndary to pain) Eyes: Bilateral Eye Normal Inspection, Bilateral Eye Other (light semsitivity) HEENT: PERRL/EOMI Neck: Non Tender, Supple Respiratory: Lungs Clear Neurologic/Psychiatric: Alert, Oriented x3, No Motor/Sensory Deficits, paste mixer II- XII Norm as Tested Focused Exam Sepsis Stage: Ruled Out Progress/Results/Core Measures Suspected Sepsis SIRS Temperature: Pulse: Respiratory Rate: Blood Pressure / Mean: Results/Orders My Orders Orders - EMIGDIO HOWE DO Sumatriptan Injection (Imitrex Injection (08/25/22 22:15) Vital Signs/I&O Capillary Refill : Departure Communication (Admissions) Severe unilateral headache consistent with cluster. No focal neurologic deficits patient placed on high flow oxygen and Imitrex with significant with improvement. Patient resting comfortably at time of discharge with instructions to follow-up with PCP. Return precautions reviewed. Patient verbalizes understanding agreement with discharge instructions prior to departure. Impression Primary Impression: Cluster headache Disposition: HOME, SELF-CARE Condition: Stable Departure-Patient Inst. Decision time for Depature: 22:26 Referrals: PATRICIO HAWKINS APRN (PCP) Primary Care Physician [facility]/[place] (Family) Primary Care Physician Patient Instructions: Cluster Headache Add. Discharge Instructions: You were evaluated in the emergency department for severe daily headaches consistent with cluster headaches. Please go home and rest take Tylenol for pain and sumatriptan for additional relief. You may take a second dose of Imitrex 2 hours later if symptoms continue. Follow-up with PCP for further management. Return to the ED if new or worsening symptoms. Scripts Sumatriptan Succinate (Imitrex) 50 Mg Tab 50 MG PO DAILY, #20 TAB Prov: EMIGDIO HOWE DO 08/25/22 EMIGDIO HOWE DO Aug 25, 2022 22:12
[2022-08-25] MEDS ORDERED: SUMAtriptan 6 MG/0.5 ML (IMITREX) INJ SQ ONE (22:15)
[2022-08-25] MEDS ORDERED: SMTR50T PO (22:30)
[2022-08-25 22:39] VITALS: BP 131/87
== END 2022-08-25 22:39 | disposition home or self-care (01) ==
LOC: EDUNIT# 21:52 → ER FS 21:53
DX: G44.009 Cluster headache syndrome, unspecified, not intractable (principal); Z28.310 Unvaccinated for COVID-19

== ENCOUNTER 2022-11-24 08:04 | Emergency (ER) | payer MEDICAID ==
[~2022-11-24] VITALS: Ht 185.4 cm; Wt 95.2 kg
[~2022-11-24 08:04] MED LIST changes: +SMTR50T PO
[2022-11-24 08:29] LABS: BASOPHILS % (AUTO) 0 % (0-10); EOSINOPHILS # (AUTO) 0.2 10^3/uL (0.0-0.3); EOSINOPHILS % (AUTO) 1 % (0-10); HEMATOCRIT 48 % (40-54); HEMOGLOBIN 16.2 g/dL (13.3-17.7); LYMPHOCYTES # (AUTO) 0.9 10^3/uL (1.0-4.0); LYMPHOCYTES % (AUTO) 7 % (12-44); MEAN CORPUSCULAR HEMOGLOBIN 31 pg (25-34); MEAN CORPUSCULAR HGB CONC 34 g/dL (32-36); MEAN CORPUSCULAR VOLUME 92 fL (80-99); MEAN PLATELET VOLUME 8.5 fL (9.0-12.2); MONOCYTES # (AUTO) 0.7 10^3/uL (0.0-1.0); MONOCYTES % (AUTO) 5 % (0-12); NEUTROPHILS # (AUTO) 11.1 10^3/uL (1.8-7.8); NEUTROPHILS % (AUTO) 86 % (42-75); PLATELET COUNT 386 10^3/uL (130-400); WHITE BLOOD COUNT 12.9 10^3/uL (4.3-11.0)
[2022-11-24] MEDS ORDERED: LACTATED RINGERS 1,000 ML IV ONE (08:30)
[2022-11-24] MEDS ORDERED: fentaNYL INJ 100 MCG/2 ML AMP IVP ONE (08:30)
[2022-11-24] MEDS ORDERED: ONDANSETRON 4 MG/2 ML (SDV) Z0FRAN IVP ONE (08:30)
--- NOTE | 2022-11-24 08:37 | ED Abdominal Pain ---
General Chief Complaint: Abdominal/GI Problems Stated Complaint: VOMITING; EPIGASTRIC PAIN Nursing Triage Note: Patient ambulatory to room 06 with c/o left sided "burning" abdominal pain. Patient states he started vomitting yesterday. Patient has been seeing for abdominal pain. Source of Information: Patient, Family Exam Limitations: No Limitations History of Present Illness Date Seen by Provider: Nov 24, 2022 Time Seen by Provider: 08:15 Initial Comments This 32-year-old gentleman presents to the emergency room with complaints of left-sided abdominal pain, nausea, vomiting, diarrhea, and subjective fever with diaphoresis. The abdominal pain has been present waxing and waning for 2 or 3 weeks. He has been vomiting occasionally in the mornings. Last night his pain, vomiting, and diarrhea became intense. His mucous membranes are now quite dry. He has been under work-up with his primary care provider, Dr. CHANG. An ultrasound was performed recently, but we do not yet have access to those results. He is afebrile at present. He has history of viral hepatitis status posttreatment. He reports clearance with negative viral load. He admits to smoking tobacco and marijuana, he denies any other current alcohol or drug use x2 years. He describes no blood in his emesis or stool. He has had some dizziness and disorientation since the intense vomiting started last night. Allergies and Home Medications Allergies Coded Allergies: amoxicillin (Verified Allergy, Unknown, 05/01/21) clavulanic acid (Verified Allergy, Unknown, 05/01/21) Patient Home Medication List Home Medication List Reviewed: Yes Omeprazole (Omeprazole) 20 Mg Tablet.dr 20 MG PO BID Prescribed by: SHARAN STAPLETON on 11/24/22 104 Ondansetron (Ondansetron Odt) 4 Mg Tab.rapdis, 4 MG SL Q4H PRN for NAUSEA/VOMITING Prescribed by: SHARAN STAPLETON on 11/24/22 1040 Sumatriptan Succinate (Imitrex) 50 Mg Tab, 50 MG PO DAILY Prescribed by: EMIGDIO HOWE on 08/25/222229 Review of Systems Review of Systems Constitutional: see HPI EENTM: No Symptoms Reported Respiratory: No Symptoms Reported Cardiovascular: No Symptoms Reported Gastrointestinal: See HPI Genitourinary: No Symptoms Reported Musculoskeletal: no symptoms reported Skin: see HPI Psychiatric/Neurological: See HPI Endocrine: No Symptoms Reported Hematologic/Lymphatic: No Symptoms Reported Past Ubuzqyg-Lelywi-Nvahyt Hx Patient Social History Tobacco Use?: Yes Tobacco type used: Cigarettes Smoking Status: Current Everyday Smoker Substance use?: Yes Substance type: Marijuana Substance frequency: Daily Alcohol Use?: No Immunizations Up To Date First/Initial COVID19 Vaccinat: NA Second COVID19 Vaccination Frank: NA Third COVID19 Vaccination Date: NA Seasonal Allergies Seasonal Allergies: Yes Past Medical History Surgery/Hospitalization HX: myringotomy ear tubes, tympanic membrane repair w/ skin graft, CO, headaches Surgeries: Yes (ear surgeries) Ear Surgery Respiratory: No Cardiac: No ("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 oz. kg; 27.00 BMI Method: General Appearance: WD/WN, mild distress HEENT: PERRL/EOMI, normal ENT inspection, other (Mucous membranes dry) Neck: normal inspection Respiratory: lungs clear, normal breath sounds, no respiratory distress Cardiovascular: no edema, no murmur, tachycardia (Mild, regular) Gastrointestinal: soft, distended (Mild), tenderness (Left-sided); No mass Extremities: normal inspection, no pedal edema Neurologic/Psychiatric: no motor/sensory deficits, alert, normal mood/affect, oriented x 3 Skin: normal color, warm/dry Progress/Results/Core Measures Results/Orders Lab Results Laboratory Tests Test 11/24/22 08:15 11/24/22 08:50 Range/Units White Blood Count 12.9 H 4.3-11.0 10^3/uL Red Blood Count 5.21 4.30-5.52 10^6/uL Hemoglobin 16.2 13.3-17.7 g/dL Hematocrit 48 40-54 % Mean Corpuscular Volume 92 80-99 fL Mean Corpuscular Hemoglobin 31 25-34 pg Mean Corpuscular Hemoglobin Concent 34 32-36 g/dL Red Cell Distribution Width 12.5 10.0-14.5 % Platelet Count 386 130-400 10^3/uL Mean Platelet Volume 8.5 L 9.0-12.2 fL Immature Granulocyte % (Auto) 0 % Neutrophils (%) (Auto) 86 H 42-75 % Lymphocytes (%) (Auto) 7 L 12-44 % Monocytes (%) (Auto) 5 0-12 % Eosinophils (%) (Auto) 1 0-10 % Basophils (%) (Auto) 0 0-10 % Neutrophils # (Auto) 11.1 H 1.8-7.8 10^3/uL Lymphocytes # (Auto) 0.9 L 1.0-4.0 10^3/uL Monocytes # (Auto) 0.7 0.0-1.0 10^3/uL Eosinophils # (Auto) 0.2 0.0-0.3 10^3/uL Basophils # (Auto) 0.0 0.0-0.1 10^3/uL Immature Granulocyte # (Auto) 0.1 0.0-0.1 10^3/uL Neutrophils % (Manual) 83 % Lymphocytes % (Manual) 8 % Monocytes % (Manual) 4 % Eosinophils % (Manual) 4 % Basophils % (Manual) 0 % Band Neutrophils 1 % Prothrombin Time 12.8 12.2-14.7 SEC INR Comment 0.9 0.8-1.4 Sodium Level 138 135-145 MMOL/L Potassium Level 4.5 3.6-5.0 MMOL/L Chloride Level 104 98-107 MMOL/L Carbon Dioxide Level 24 21-32 MMOL/L Anion Gap 10 5-14 MMOL/L Blood Urea Nitrogen 15 7-18 MG/DL Creatinine 1.04 0.60-1.30 MG/DL Estimat Glomerular Filtration Rate 97 BUN/Creatinine Ratio 14 Glucose Level 112 H 70-105 MG/DL Calcium Level 9.7 8.5-10.1 MG/DL Corrected Calcium 8.5-10.1 MG/DL Magnesium Level 1.8 1.6-2.4 MG/DL Total Bilirubin 0.6 0.1-1.0 MG/DL Aspartate Amino Transf (AST/SGOT) 40 H 5-34 U/L Alanine Aminotransferase (ALT/SGPT) 56 H 0-55 U/L Alkaline Phosphatase 133 40-136 U/L C-Reactive Protein 1.53 H <0.50 MG/DL Total Protein 8.1 6.4-8.2 GM/DL Albumin 4.6 H 3.2-4.5 GM/DL Lipase 22 8-78 U/L Urine Color YELLOW Urine Clarity CLEAR Urine pH 6.0 5-9 Urine Specific Kersey >=1.030 1.016-1.022 Urine Protein TRACE H NEGATIVE Urine Glucose (UA) NEGATIVE NEGATIVE Urine Ketones 3+ H NEGATIVE Urine Nitrite NEGATIVE NEGATIVE Urine Bilirubin 1+ H NEGATIVE Urine Urobilinogen 0.2 < = 1.0 MG/DL Urine Leukocyte Esterase NEGATIVE NEGATIVE Urine RBC (Auto) NEGATIVE NEGATIVE Urine RBC NONE /HPF Urine WBC 0-2 /HPF Urine Squamous Epithelial Cells 0-2 /HPF Urine Crystals NONE /LPF Urine Bacteria TRACE /HPF Urine Casts NONE /LPF Urine Mucus LARGE H /LPF Urine Culture Indicated NO My Orders Orders - SHARAN MORTENSEN MD Ondansetron Injection (Zofran Injectio (11/24/22 08:30) Ed Iv/Invasive Line Start (11/24/22 08:16) Lactated Ringers (Lr 1000 Ml Iv Solution (11/24/22 08:30) Cbc With Automated Diff (11/24/22 08:16) Comprehensive Metabolic Panel (11/24/22 08:16) Magnesium (11/24/22 08:16) Ua Culture If Indicated (11/24/22 08:28) Crp Fs (11/24/22 08:28) Fentanyl Inj (Sublimaze Injection) (11/24/22 08:30) Lipase (11/24/22 08:29) Manual Differential (11/24/22 08:15) Protime With Inr (11/24/22 08:39) Ct Abdomen/Pelvis W (11/24/22 09:06) Iohexol Injection (Omnipaque 350 Mg/Ml 1 (11/24/22 09:30) Received Contrast (Hold Metformin- Contr (11/24/22 09:30) Ns (Ivpb) (Sodium Chloride 0.9% Ivpb Bag (11/24/22 09:30) Ns Iv 1000 Ml (Sodium Chloride 0.9%) (11/24/22 10:15) Ketorolac Injection (Toradol Injection) (11/24/22 10:15) Pantoprazole Injection (Protonix Injecti (11/24/22 10:15) Medications Given in ED Current Medications Medications Dose Ordered Sig/Clara Route Start Time Stop Time Status Last Admin Dose Admin Fentanyl Citrate 50 mcg ONCE ONCE IVP 11/24/22 08:30 11/24/22 08:31 DC 11/24/22 08:34 50 MCG Iohexol 100 ml ONCE ONCE IV 11/24/22 09:30 11/24/22 09:31 DC 11/24/22 09:28 75 ML Ketorolac Tromethamine 30 mg ONCE ONCE IVP 11/24/22 10:15 11/24/22 10:16 DC 11/24/22 10:23 30 MG Lactated Ringer's 1,000 ml @ 0 mls/hr Q0M ONCE IV 11/24/22 08:30 11/24/22 08:31 DC 11/24/22 08:27 1,000 MLS/HR Ondansetron HCl 8 mg ONCE ONCE IVP 11/24/22 08:30 11/24/22 08:31 DC 11/24/22 08:26 8 MG Pantoprazole 40 mg ONCE ONCE IV 11/24/22 10:15 11/24/22 10:16 DC 11/24/22 10:23 40 MG Sodium Chloride 100 ml ONCE ONCE IV 11/24/22 09:30 11/24/22 09:31 DC 11/24/22 09:27 100 ML Vital Signs/I&O 11/24/22 08:09 Temp 36.2 Pulse 108 Resp 18 B/P (MAP) 133/82 (99) Pulse Ox 97 O2 Delivery Room Air Blood Pressure Mean: 99 Progress Progress Note #1: Time: 08:39 Progress Note Patient was interviewed and examined. He is being treated with IV fluids and Zofran. He was offered fentanyl but declines at this time. Labs are pending. Further work-up will be based on response to treatment and lab results. Progress Note #2: Time: 10:15 Progress Note Labs were reviewed including CBC, CMP, lipase, CRP, and urinalysis. All results were reviewed in their entirety. Patient had mild elevation in WBC and CRP. These findings in combination with report of subjective fever and worsening left-sided abdominal pain prompted CT scan. CT of the abdomen and pelvis with contrast was viewed by me. By my interpretation no acute abnormalities were identified. There were no inflammatory changes consistent with colitis or diverticulitis. No ureteral stone or hydronephrosis was noted. I also reviewed the radiologist's interpretation. Prominent lymph nodes were noted. Small hiatal hernia was noted. Patient was treated with a second liter of IV fluid as he had 3+ ketones in his urine suggesting hypovolemia. Suspected GERD from hiatal hernia was treated with IV Protonix. Pain from suspected medicine lymphadenitis was treated with Toradol. Findings were all reviewed with patient and his significant other. Plan of care was discussed and discharge instruct ions were reviewed. Prescriptions were provided as below. See discharge instructions for further details. Diagnostic Imaging Diagonstic Imaging: CT Plain Films/CT/US/NM/MRI: abdomen, pelvis Comments NAME: RACQUEL COLBY [facility] REC#: [id number] PT STATUS: REG ER : 1990 PHYSICIAN: SHARAN MORTENSEN MD ADMIT DATE: 11/24/22/ER FS Draft Date of Exam:11/24/22 CT ABDOMEN/PELVIS W PROCEDURE: CT abdomen and pelvis with contrast. TECHNIQUE: Multiple contiguous axial images were obtained through the abdomen and pelvis after administration of intravenous contrast. Auto Exposure Controls were utilized during the CT exam to meet ALARA standards for radiation dose reduction. All CT scans use one or more of the following dose optimizing techniques: automated exposure control, MA and/or KvP adjustment based on patient size and exam type or iterative reconstruction. INDICATION: Left abdominal pain and emesis. FINDINGS: There is no focal hepatic, gallbladder, pancreatic, adrenal gland or splenic abnormality. There is a small hiatal hernia present. No focal renal abnormality seen. There is no evidence of free fluid. Occasional mildly prominent mesenteric lymph nodes are noted with the largest to the left of midline demonstrating a long axis dimension of 1.5 cm. There may also be mild increased density in the mesentery. The appendix has a normal appearance. Unopacified urinary bladder is unremarkable. There is fluid within distal colon. No pericolonic inflammation is identified. IMPRESSION: Mildly prominent mesenteric lymph nodes and slight increased density could represent mesenteric adenitis with component of mesenteritis. There is fluid present within the colon which can indicate diarrheal state. Otherwise, note is made of mild hiatal hernia which could possibly contribute to gastroesophageal reflux. Dictated on workstation # [id number] Dict: 11/24/22 0945 Trans: 11/24/22 0951 [id number] Interpreted by: KLEVER REDMAN MD Departure Impression Primary Impression: Left sided abdominal pain Additional Impressions: Nausea vomiting and diarrhea Hiatal hernia Mesenteric adenitis Hypovolemia Disposition: 01 HOME, SELF-CARE Condition: Improved Departure-Patient Inst. Decision time for Depature: 10:35 Referrals: JASS CHANG DO (PCP) Primary Care Physician Patient Instructions: Abdominal Pain, Adult ED, Hiatal Hernia, Mesenteric Lymphadenitis Add. Discharge Instructions: You likely have multiple contributing factors to your symptoms today. You likely have a viral gastroenteritis accounting for this severe worsening of your abdominal pain, vomiting and diarrhea over the last 24 hours. You likely also have other problems contributing to the stomach upset you have experienced over the past few weeks including hiatal hernia, acid reflux, and possibly marijuana use. Adhere to a noncarbonated clear liquid diet for the remainder of today. This includes water, sports drinks, Jell-O, chicken broth, etc. If you are feeling better in the morning, gradually advance your diet with small quantities of bland food as tolerated. Avoid fatty and greasy foods, dairy products, and spicy foods for an additional few days. Use the Zofran (ondansetron) dissolved under the tongue every 4 hours as needed for nausea or vomiting. Use omeprazole as prescribed twice daily for at least 2 weeks and until you can follow-up with your primary care provider to discuss further. To avoid irritation with your hiatal hernia and acid reflux, avoid the following as much as possible: Eating large meals, eating close to bedtime, caffeine, carbonation, chocolate, citrus fruits and juices, tomato products, mints, tobacco, alcohol, marijuana, spicy foods, fatty/greasy foods, NSAID medications such as ibuprofen or naproxen, and anything else you know irritates your stomach. For acute pain you may take Tylenol (acetaminophen) up to 1000 mg every 6 hours as needed. You may also try Tums per package instructions. Stop marijuana use as this may have a significant negative impact on your gastrointestinal health and may cause chronic problems with abdominal pain and vomiting. Also work toward quitting smoking as rapidly as possible. Seek assistance from your primary care provider if needed. Follow-up with your primary care provider in 1 to 2 weeks. Call today to schedule an appointment. At that follow-up appointment, discuss continued use of antiacid medications and referral for endoscopy (camera scoping of your esophagus, stomach, and colon). Return to care if you have worsening symptoms despite following these instructions. All discharge instructions reviewed with patient and/or family. Voiced understanding. Scripts Ondansetron (Ondansetron Odt) 4 Mg Tab.rapdis 4 MG SL Q4H PRN for NAUSEA/VOMITING, #10 TAB Prov: SHARAN MORTENSEN MD 11/24/22 Omeprazole (Omeprazole) 20 Mg Tablet.dr 20 MG PO BID, #60 TAB Prov: SHARAN MORTENSEN MD 11/24/22 Work/School Note: Work Release Form Date Seen in the Emergency Department: Nov 24, 2022 Return to Work: Nov 26, 2022 Restrictions: Return-No Fever (24hrs), Return-No Vomiting(24hrs) Copy Copies To 1: JASS CHANG JOSHUA T MD Nov 24, 2022 08:37
[2022-11-24 08:49] LABS: CHLORIDE 104 MMOL/L (98-107); POTASSIUM 4.5 MMOL/L (3.6-5.0); SODIUM 138 MMOL/L (135-145)
[2022-11-24 08:50] LABS: ALANINE AMINOTRANSFERASE 56 U/L (0-55); ALKALINE PHOSPHATASE 133 U/L (40-136); BILIRUBIN,TOTAL 0.6 MG/DL (0.1-1.0); BUN/CREATININE RATIO 14; CALCIUM 9.7 MG/DL (8.5-10.1); CARBON DIOXIDE 24 MMOL/L (21-32); CREATININE SERUM 1.04 MG/DL (0.60-1.30); GFR ESTIMATED 97; GLUCOSE 112 MG/DL (70-105); MAGNESIUM 1.8 MG/DL (1.6-2.4); TOTAL PROTEIN 8.1 GM/DL (6.4-8.2)
[2022-11-24 08:51] LABS: ALBUMIN 4.6 GM/DL (3.2-4.5)
[2022-11-24 08:52] LABS: INR 0.9 (0.8-1.4); PROTHROMBIN TIME PATIENT 12.8 SEC (12.2-14.7)
[2022-11-24 09:01] LABS: CLARITY,URINE CLEAR; COLOR,URINE YELLOW; GLUCOSE, URINE (UA) NEGATIVE (NEGATIVE); KETONES,URINE 3+ (NEGATIVE); LEUKOCYTE ESTERASE ,URINE NEGATIVE (NEGATIVE); NITRITE,URINE NEGATIVE (NEGATIVE); PROTEIN,URINE TRACE (NEGATIVE)
[2022-11-24 09:15] LABS: BACTERIA,URINE TRACE /HPF; SQUAMOUS EPITHELIAL CELL,UR 0-2 /HPF; WBC,URINE 0-2 /HPF
[2022-11-24 09:26] LABS: BAND NEUTROPHILS 1 %; BASOPHILS % (MANUAL) 0 %; EOSINOPHILS % (MANUAL) 4 %; LYMPHOCYTES % (MANUAL) 8 %; MONOCYTES % (MANUAL) 4 %; NEUTROPHILS % (MANUAL) 83 %
[2022-11-24] MEDS ORDERED: IOHEXOL 350 MG/ML 100 ML (OMNIPAQUE 350) VIAL IV ONE (09:30)
[2022-11-24] MEDS ORDERED: NS 100 ML (IVPB) BAG IV ONE (09:30)
[2022-11-24] MEDS ORDERED: HOLD METFORMIN - RECEIVED CONTRAST 20 ML VIAL IV SCH (09:30)
--- NOTE | 2022-11-24 09:51 | Diagnostic Imaging Report ---
PROCEDURE: CT abdomen and pelvis with contrast. TECHNIQUE: Multiple contiguous axial images were obtained through the abdomen and pelvis after administration of intravenous contrast. Auto Exposure Controls were utilized during the CT exam to meet ALARA standards for radiation dose reduction. All CT scans use one or more of the following dose optimizing techniques: automated exposure control, MA and/or KvP adjustment based on patient size and exam type or iterative reconstruction. INDICATION: Left abdominal pain and emesis. FINDINGS: There is no focal hepatic, gallbladder, pancreatic, adrenal gland or splenic abnormality. There is a small hiatal hernia present. No focal renal abnormality seen. There is no evidence of free fluid. Occasional mildly prominent mesenteric lymph nodes are noted with the largest to the left of midline demonstrating a long axis dimension of 1.5 cm. There may also be mild increased density in the mesentery. The appendix has a normal appearance. Unopacified urinary bladder is unremarkable. There is fluid within distal colon. No pericolonic inflammation is identified. IMPRESSION: Mildly prominent mesenteric lymph nodes and slight increased density could represent mesenteric adenitis with component of mesenteritis. There is fluid present within the colon which can indicate diarrheal state. Otherwise, note is made of mild hiatal hernia which could possibly contribute to gastroesophageal reflux. Dictated by: Dictated on workstation # [id number]
[2022-11-24] MEDS ORDERED: KETOROLAC 30 MG/ML VIAL IVP ONE (10:15)
[2022-11-24] MEDS ORDERED: NS IV 1000 ML 1,000 ML IV SCH (10:15)
[2022-11-24] MEDS ORDERED: PANTOPRAZOLE 40 MG (PROTONIX) VIAL IV ONE (10:15)
[2022-11-24] MEDS ORDERED: ONDA4TAB11 SL (10:40)
[2022-11-24] MEDS ORDERED: OMEP20TA56 PO (10:40)
[2022-11-24 11:28] VITALS: BP 119/75
[2022-11-25 04:15] LABS: BILIRUBIN,URINE 1+ (NEGATIVE)
== END 2022-11-24 11:28 | disposition home or self-care (01) ==
LOC: EDUNIT# 08:04 → ER FS 08:05
DX: K44.9 Diaphragmatic hernia without obstruction or gangrene (principal); E86.1 Hypovolemia; I88.0 Nonspecific mesenteric lymphadenitis; R79.82 Elevated C-reactive protein (CRP); F17.210 Nicotine dependence, cigarettes, uncomplicated; Z28.310 Unvaccinated for COVID-19
CPT/HCPCS: 36415; 74177; 80053; 81000; 83690; 83735; 85007; 85027; 85610; 86141; Q9967

== ENCOUNTER → 2023-01-03 | Outpatient (CLI) | payer MEDICAID ==
[~2023-01-03] MED LIST changes: +CATHETER FLUSH 10 ML SYR IVP PRN; +OMEP20TA56 PO; +ONDA4TAB11 SL
--- NOTE | 2023-01-03 12:13 | Diagnostic Imaging Report ---
Indication: Right upper quadrant pain. Patient was administered 5.5 mCi technetium 99m Choletec intravenously and imaging over the abdomen was performed. At 45 minutes patient ingested 8 ounces of ensure and the gallbladder ejection fraction was calculated. The liver shows homogeneous uptake of activity. There is prompt excretion of activity into the common duct and gallbladder. There is normal passage of activity into the small bowel. Gallbladder ejection fraction is normal at 77%. IMPRESSION: Normal HIDA scan and gallbladder ejection fraction. Dictated by: Dictated on workstation # [id number]
== END ==
LOC: CARD 09:20
PROVIDERS: ATTEND Surgery
DX: R10.11 Right upper quadrant pain (principal); R11.2 Nausea with vomiting, unspecified
CPT/HCPCS: 78227; A9537

== ENCOUNTER 2023-01-26 06:31 | Outpatient (CLI) | payer MEDICAID ==
[~2023-01-26] VITALS: Ht 185.4 cm; Wt 94.4 kg
[~2023-01-26 06:31] MED LIST changes: -CATHETER FLUSH 10 ML SYR IVP PRN
== END 2023-01-26 09:31 | disposition home or self-care (01) ==
LOC: PREOP 06:31
PROVIDERS: ATTEND Surgery
DX: Z01.818 Encounter for other preprocedural examination (principal)

== ENCOUNTER 2023-02-02 10:59 | Day surgery (SDC) | payer MEDICAID ==
[~2023-02-02] VITALS: Ht 185 cm; Wt 94.4 kg
[~2023-02-02 10:59] MED LIST changes: +LACTATED RINGERS 1,000 ML IV STA
[2023-02-02] MEDS ORDERED: HURRICAINE EXT TUBE (BENZOCAINE) XX PRN (11:00)
[2023-02-02] MEDS ORDERED: LIDOCAINE JELLY 2% 6 ML SYRINGE MM PRN (11:00)
[2023-02-02 11:20] VITALS: BP 126/74
--- NOTE | 2023-02-02 11:43 | Progress Note-Pre Operative ---
Pre-Operative Progress Note Date of Available H&P: Feb 02, 2023 Date H&P Reviewed: Feb 02, 2023 Time H&P Reviewed: 11:00 History & Physical: No changes noted Pre-Operative Diagnosis: GERD, abd pain, diarrhea LINDA STUBBS MD Feb 02, 2023 11:43
[2023-02-02] MEDS ORDERED: PANT40TA52 PO (11:44)
[2023-02-02] MEDS ORDERED: ONDANSETRON 4 MG (ZOFRAN) ORAL DISSOLVE TAB PO PRN (11:45)
[2023-02-02] MEDS ORDERED: ONDANSETRON 4 MG/2 ML (SDV) Z0FRAN IVP PRN (11:45)
--- NOTE | 2023-02-02 11:45 | Discharge Inst-Surgical ---
D/C Lap Instructions-KIDO New, Converted, or Re-Newed RX: RX on Chart Follow Up Activity as tolerated High Fiber Diet 25g or more per day Avoid Alcohol, Caffeine, Spicy [place] and Acid foods. Drink 64 fluid oz or more of fluids per day. Symptoms to Report: Fever over 101 degree F, Nausea/Vomiting If any problems/questions: Contact your physician or go to Emergency Room LINDA STUBBS MD Feb 02, 2023 11:45
[2023-02-02] MEDS ORDERED: LIDOCAINE JELLY 2% 6 ML SYRINGE ONE (12:14)
--- NOTE | 2023-02-02 12:45 | Anesthesia-General Post-Op ---
MAC Patient Condition Mental Status/LOC: Same as Preop Cardiovascular: Satisfactory Nausea/Vomiting: Absent Respiratory: Satisfactory Pain: Controlled Complications: Absent Post Op Complications Complications None Follow Up Care/Instructions Patient Instructions None needed. Anesthesiology Discharge Order Discharge Order Patient is doing well, no complaints, stable vital signs, no apparent adverse anesthesia problems. No complications reported per nursing. ADEN ABEBE CRNA Feb 02, 2023 12:45
[2023-02-02 12:50] VITALS: BP 90/53
[2023-02-02 12:55] VITALS: BP 93/54
--- NOTE | 2023-02-02 12:59 | Progress Note-Post Operative ---
Post-Operative Progess Note Surgeon (s)/Ophthalmic Medical Assistant (s) Surgeon LINDA STUBBS MD Ophthalmic Medical Assistant: none Pre-Operative Diagnosis GERD, abd pain, diarrhea Post-Operative Diagnosis reflux esophagitis(grade B), smal HH(1cm), mild-moderate gastritis. normal colon and rectum. Procedure & Operative Findings Date of Procedure 02/02/23 Procedure Performed/Findings EGD with bx. Colonoscopy. Anesthesia Type mac Estimated Blood Loss Estimated blood loss (mL): minimal Specimens/Packing Specimens Removed ge jxn, antrum LINDA STUBBS MD Feb 02, 2023 12:59
[2023-02-02 13:00] VITALS: BP 92/57
[2023-02-02 13:50] VITALS: BP 92/57
--- NOTE | 2023-02-02 20:34 | OPERATIVE REPORT ---
DATE OF SERVICE: 02/02/2023 ATTENDING PRIMARY CARE PHYSICIAN: Gus Menard DO PREOPERATIVE DIAGNOSES: Epigastric and right upper abdominal quadrant pain, reflux, diarrhea. POSTOPERATIVE DIAGNOSES: Reflux esophagitis, [place] grade B, small hiatal hernia, 1 cm in size, mild to moderate gastritis, normal colon and rectum. PROCEDURE: EGD with biopsy, colonoscopy. SURGEON: Linda Stubbs MD ANESTHESIA: Monitored anesthesia care. ESTIMATED BLOOD LOSS: Minimal. FINDINGS: Reflux esophagitis, [place] grade B, small hiatal hernia, 1 cm in size, mild to moderate gastritis, normal colon and rectum. DISPOSITION: The patient tolerated the procedure well. INDICATIONS: The patient is a 32-year-old male who has had issues with crampy abdominal pain in the epigastric region as well as a right upper abdominal quadrant. He also had an episode of upper respiratory infection and was placed on antibiotics and did have right lower abdominal quadrant pain and a CT scan was performed; however, this was consistent with mesenteric adenitis. The patient underwent the gallbladder ultrasound, which did not show any stones and this was followed by a HIDA scan, which showed an ejection fraction of 77%; however, he did have significant symptoms with again pain in the epigastric region as well as right upper abdominal quadrant and severe diarrhea. This is consistent with a biliary dyskinesia. The patient does have some risk factors for peptic ulcer disease and reflux esophagitis with a previous history of drug abuse, hepatitis C as well as a current smoker. He also reports that he has had significant intermittent episodes of diarrhea. He does not report any red blood per rectum, nor any dark tarry stools. DESCRIPTION OF PROCEDURE: The patient was brought to the endoscopy suite and laid in the left lateral decubitus position. After adequate IV pain and sedative medications and monitored anesthesia care, the mouthpiece was applied. The endoscope was placed in the mouth, visualizing the pharynx and hypopharyngeal region. Vocal cords, epiglottis and vallecula identified and appeared to be normal. The endoscope was then gently intubated into the esophageal opening and esophagus insufflated. The endoscope was then advanced through the first, second, third portions of esophagus at the level of the GE junction, reflux esophagitis, [place] grade B identified. No ulcers or strictures identified in this region. A biopsy was taken with forceps with visualization of good hemostasis. The endoscope was then advanced into the stomach and endoscope retroflexed, visualizing a small hiatal hernia approximately 1 cm in size. There was a [id number] gastritis. No formal ulcers, polyps, or any neoplasms and a biopsy was taken of the antrum to rule out H. pylori with visualization of good hemostasis. The endoscope was then advanced through the pylorus and first and second portion of the duodenum, which appeared normal with no ulcerations. The endoscope was then slowly withdrawn while taking a second look and suctioning of residual air with no additional findings. A digital rectal examination was performed. There was mild external hemorrhoids; however, not significant. Normal sphincter tone was felt and there were no palpable masses. Prostate gland was palpable and appeared normal. The endoscope was then intubated into the anus, rectum gently insufflated. The endoscope was then advanced through the valves of [place] of the rectum with no polyps or any neoplasms identified. We then proceeded through the sigmoid colon where no diverticulosis was identified. The endoscope was then advanced through the remainder of the descending, transverse and ascending colon to the cecum, which were normal. There were no mucosal inflammatory changes as well as no polyps or any neoplasms. The endoscope was slowly withdrawn while taking second look and suctioning of residual air with no additional findings. The patient tolerated the procedure well. We will have him continue with medical management with small and more frequent meals, avoidance of eating at night as well as head elevation while lying supine. He also needs to proceed with risk reduction with smoking cessation as well as avoidance of caffeinated beverages, spicy, greasy and acidic foods as well as taking small and more frequent meals and continue his omeprazole 20 mg daily. We will also recommend a high-fiber diet with at least 30 grams of fiber daily as well as significant amounts of water to promote soft consistency stools on a daily basis, which are not hard or well formed as well as not liquid in consistency and more soft with minimal formed. We feel that due to his symptomatology during the HIDA scan after the administration of the Kinevac analogue that he does have symptomatic biliary dyskinesia and we will discuss future plans for a laparoscopic cholecystectomy. Job ID: [id number] DocumentID: [id number] Dictated Date: 02/02/2023 12:55:25 Theater Manager Date: 02/02/2023 20:32:00 Dictated By: LINDA STUBBS MD
== END 2023-02-02 13:55 | disposition home or self-care (01) ==
LOC: ENDO 10:59
PROVIDERS: ATTEND Surgery
DX: K21.00 Gastro-esophageal reflux disease with esophagitis, without bleeding (principal); K29.70 Gastritis, unspecified, without bleeding; K44.9 Diaphragmatic hernia without obstruction or gangrene; K31.89 Other diseases of stomach and duodenum; I88.0 Nonspecific mesenteric lymphadenitis; R19.7 Diarrhea, unspecified; F17.210 Nicotine dependence, cigarettes, uncomplicated
CPT/HCPCS: 88305

== ENCOUNTER 2023-02-08 05:29 | Outpatient (CLI) | payer MEDICAID ==
[~2023-02-08] VITALS: Ht 182.8 cm; Wt 90.9 kg
[~2023-02-08 05:29] MED LIST changes: -LACTATED RINGERS 1,000 ML IV STA; +PANT40TA52 PO
[2023-02-08] MEDS ORDERED: OMEP20TA56 PO (08:40)
== END 2023-02-08 08:55 ==
LOC: PREOP 05:29
PROVIDERS: ATTEND Surgery
DX: Z01.818 Encounter for other preprocedural examination (principal)

== ENCOUNTER 2023-02-10 10:23 | Day surgery (SDC) | payer MEDICAID ==
--- NOTE | 2023-02-08 10:40 | HISTORY AND PHYSICAL ---
DATE OF SERVICE: 02/10/2023 DATE OF PROCEDURE: 02/10/2023 ATTENDING PRIMARY CARE PHYSICIAN: Dr. Gus Menard. INDICATION: The patient is a 32-year-old male who has had issues with cramping abdominal pain in the epigastric region as well as right upper abdominal quadrant. He also reported an episode of upper respiratory tract infection and was placed on antibiotics and did have right lower abdominal quadrant pain and a CT scan was performed; however, this was consistent with a mesenteric adenitis. He does have some risk factors for peptic ulcer disease and reflux esophagitis with a previous history of drug abuse, hepatitis C, as well as a current smoker. He does report that he has had significant intermittent episodes of diarrhea, but does not report any red blood per rectum. No dark tarry stools. On 02/02/2023, he underwent an EGD with biopsy and colonoscopy. Findings were reflux esophagitis, [place] grade B small hiatal hernia, 1 cm in size. Mild to moderate gastritis with a normal colon and rectum. Biopsies were negative for H. pylori as well as negative for Leone's esophagus. He continues to have issues with diarrhea as well as epigastric pain and right upper quadrant abdominal pain. He did undergo a gallbladder ultrasound, which was unremarkable. He then underwent a HIDA scan, which did show a normal ejection fraction of 77%. However, he did have reproduction of symptoms. After the administration of the Kinevac analog consistent with a biliary dyskinesia. It was discussed with him about these results and it was decided to proceed with scheduling him for a laparoscopic cholecystectomy. MEDICAL HISTORY: Drug abuse, hepatitis C, myocardial infarction. SURGICAL HISTORY: None. ALLERGIES: AUGMENTIN. MEDICATIONS: Tamsulosin 0.4 mg daily, propranolol 40 mg at bedtime, sumatriptan 50 mg p.r.n., orphenadrine citrate ER 100 mg b.i.d. SOCIAL HISTORY: Positive for tobacco smoker, 20 pack years. Rare for alcohol. FAMILY HISTORY: Father, myocardial infarction, hypertension. VITAL SIGNS: Blood pressure is 110/76. Current weight is 217 pounds at 6 feet 1 inch. REVIEW OF SYSTEMS: A well-nourished male in no acute distress. He is not experiencing any shortness of breath or difficulty breathing. No chest pain, palpitations or diaphoresis. No nausea or vomiting. He does report epigastric as well as right upper quadrant abdominal pain as well as severe episodes of diarrhea. No red blood per rectum. No dark tarry stools. No fever or chills. No recent inadvertent weight loss. All other review of systems negative. PHYSICAL EXAM: CHEST: Clear. Good breath sounds bilaterally. HEART: Regular, no murmurs. EXTREMITIES: No lower extremity edema. Negative Homans sign. HEENT: No scleral icterus. No cervical lymphadenopathy. ABDOMEN: Soft, nondistended. There is some tenderness upon deep palpation in the epigastric as well as right upper quadrant abdominal regions. SKIN: Warm, dry and pink. NEUROLOGIC: Awake, alert and oriented x3. ASSESSMENT AND PLAN: A 32-year-old male with symptomatic biliary dyskinesia. The risks and benefits of the procedure as well as the procedure and home care instructions were explained to the patient. He verbalized understanding of instructions and agrees to proceed as planned. PLAN: At this time, we will proceed with scheduling him for a laparoscopic cholecystectomy. Job ID: [id number] DocumentID: [id number] Dictated Date: 02/08/2023 09:23:41 Precision Jig Grinder Date: 02/08/2023 10:38:00 Dictated By: ANABEL HOLLIDAY APRN
[2023-02-10] VITALS (10 sets, daily range): BP systolic 121–166; BP diastolic 72–100
[~2023-02-10] VITALS: Ht 182.8 cm; Wt 90.9 kg
--- NOTE | 2023-02-10 10:36 | Progress Note-Pre Operative ---
Pre-Operative Progress Note Date H&P Reviewed: Feb 10, 2023 Time H&P Reviewed: 10:35 History & Physical: H&P Reviewed, Patient Examed, No changes noted Pre-Operative Diagnosis: Symptomatic biliary dyskinesia ANABEL HOLLIDAY APRN Feb 10, 2023 10:36
[2023-02-10] MEDS ORDERED: HYDR-3817 PO (10:37)
--- NOTE | 2023-02-10 10:37 | Discharge Inst-Surgical ---
D/C Lap Instructions-KIDO Reconcile Patient Problems Problems Reviewed?: Yes New, Converted, or Re-Newed RX: RX on Chart Follow Up Appt in 2 weeks Activity as tolerated No driving for 24 hours No driving while on pain medications Incentive Spirometry use every 2 hours while awake Regular Diet Symptoms to Report: Fever over 101 degree F, Nausea/Vomiting Infection Signs and Symptoms to report: Increased redness, Foul odor of wound, Increased drainage Bathing instructions: May shower Operative Area Clean/Dry; Keep incision clean/dry If any problems/questions: Contact your physician or go to Emergency Room ANABEL HOLLIDAY APRN Feb 10, 2023 10:37
[2023-02-10] MEDS ORDERED: HYDROcodone/APAP 5 MG/325 MG (LORTAB) TAB PO ONE (10:45)
[2023-02-10] MEDS ORDERED: ONDANSETRON 4 MG/2 ML (SDV) Z0FRAN IVP PRN ×2 (10:45→13:45)
[2023-02-10] MEDS ORDERED: morphine INJ 10 MG/ML 1ML (SYR OR VIAL) IVP PRN (10:45)
[2023-02-10] MEDS ORDERED: ACETAMINOPHEN 325 MG TABLET PO PRN (10:45)
[2023-02-10] MEDS: LACTATED RINGERS 1,000 ML IV PRN ×2 (10:53→13:09)
[2023-02-10] MEDS ORDERED: CLINDAMYCIN 600 MG/50 ML IVPB 50 ML IV ONE (11:00)
[2023-02-10] MEDS ORDERED: BUP/EPI 0.5% 1:200,000 (SENSORCAINE) 30 ML VIAL ONE (11:44)
[2023-02-10] MEDS ORDERED: LIDOCAINE PF 2% 5 ML (XYLOCAINE) VIAL ONE (12:28)
[2023-02-10] MEDS ORDERED: ONDANSETRON 4 MG/2 ML (SDV) Z0FRAN ONE (12:28)
[2023-02-10] MEDS ORDERED: proPOfol 200 MG/20 ML (DIPRIVAN) VIAL IV ONE (12:28)
[2023-02-10] MEDS ORDERED: SEVOFLURANE (ULTANE) 15 ML INHAL SOLN ONE ×2 (12:28→13:34)
[2023-02-10] MEDS ORDERED: fentaNYL INJ 100 MCG/2 ML AMP ONE ×2 (12:29→13:42)
[2023-02-10] MEDS ORDERED: MIDAZOLAM 2 MG/2 ML (VERSED) VIAL ONE (12:29)
[2023-02-10] MEDS ORDERED: BUP/EPI 0.5% 1:200,000 (SENSORCAINE) 30 ML VIAL INJ ONE (13:07)
[2023-02-10] MEDS ORDERED: ROCURONIUM 50 MG/5 ML (ZEMURON) VIAL IV ONE (13:27)
[2023-02-10] MEDS ORDERED: NEOSTIGMINE (BLOXIVERZ ) 1 MG/1ML 10 ML VIAL ONE (13:28)
[2023-02-10] MEDS ORDERED: GLYCOPYRROLATE 0.2 MG/ML (ROBINUL) 2 ML VIAL ONE (13:28)
--- NOTE | 2023-02-10 13:34 | Progress Note-Post Operative ---
Post-Operative Progess Note Surgeon (s)/Aircraft Engine Mechanic (s) Surgeon LINDA STUBBS MD Aircraft Engine Mechanic: gigi cardenas STARTING GATE DRIVER Pre-Operative Diagnosis Symptomatic biliary dyskinesia Post-Operative Diagnosis same Procedure & Operative Findings Date of Procedure 02/10/23 Procedure Performed/Findings laparoscopic cholecystectomy Anesthesia Type get Estimated Blood Loss Estimated blood loss (mL): minimal Specimens/Packing Specimens Removed gallbladder LINDA STUBBS MD Feb 10, 2023 13:34
[2023-02-10] MEDS ORDERED: KETOROLAC 30 MG/ML VIAL ONE (13:35)
[2023-02-10] MEDS ORDERED: HYDROmorphone 2 MG/ML VIAL (DILAUDID) IV ONE (13:45)
[2023-02-10] MEDS ORDERED: fentaNYL INJ 100 MCG/2 ML AMP IVP ONE (13:45)
[2023-02-10] MEDS ORDERED: PROMETHAZINE INJ 25 MG/ML (PHENERGAN) AMP IVP ONE (13:45)
--- NOTE | 2023-02-10 13:46 | Anesthesia-General Post-Op ---
General Patient Condition Mental Status/LOC: Same as Preop Cardiovascular: Satisfactory Nausea/Vomiting: Absent Respiratory: Satisfactory Pain: Controlled Complications: Absent Post Op Complications Complications None Follow Up Care/Instructions Patient Instructions None needed. Anesthesia/Patient Condition Patient Condition Patient is doing well, no complaints, stable vital signs, no apparent adverse anesthesia problems. No complications reported per nursing. NICK TIERNEY CRNA Feb 10, 2023 13:46
[2023-02-10] MEDS ORDERED: HYDROcodone/APAP 5 MG/325 MG (LORTAB) TAB ONE (14:59)
[2023-02-10] MEDS ORDERED: HYDROcodone/APAP 7.5 MG/325 MG (LORTAB, LORCET PLUS) TABLET PO ONE (15:00)
--- NOTE | 2023-02-10 21:49 | OPERATIVE REPORT ---
DATE OF SERVICE: 02/10/2023 ATTENDING PRIMARY CARE PHYSICIAN: Gus Menard DO PREOPERATIVE DIAGNOSIS: Symptomatic biliary dyskinesia. POSTOPERATIVE DIAGNOSES: Symptomatic biliary dyskinesia. PROCEDURE: Laparoscopic cholecystectomy. SURGEON: Linda Hurtado MD PLEASURE CRAFT SAILOR: Saurabh Bean APRN ANESTHESIA: General endotracheal. ESTIMATED BLOOD LOSS: Minimal. FINDINGS: Biliary sludge with mild gallbladder wall thickening. DISPOSITION: The patient tolerated the procedure well. INDICATIONS: The patient is a 32-year-old male who has had crampy abdominal pain in the epigastric region as well as a right upper abdominal quadrant. He also had reported issues with an upper respiratory infection and was placed on antibiotics. Later, he developed right lower abdominal quadrant pain and CT scan was performed, which was consistent with mesenteric adenitis. He underwent an EGD and colonoscopy on 02/02/2023 with findings of reflux esophagitis, [place] grade B as well as a small hiatal hernia, 1 cm in size. There was some mild to moderate gastritis and a normal colon and rectum. Biopsies were negative for H. pylori as well as negative for Leone's esophagus. He reports that he continued to have issues with diarrhea as well as epigastric and right upper abdominal quadrant pain usually after eating meals. An ultrasound was performed, which did not show any gallstones; however, after a HIDA scan was performed, a normal ejection fraction of 77% was identified. However, after given the Kinevac analogue, he did have reproduction of symptoms with epigastric and right upper abdominal quadrant crampy pain, nausea as well as diarrhea. This was consistent with symptomatic biliary dyskinesia. DESCRIPTION OF PROCEDURE: The patient was brought to the operating room, laid supine on the table. After adequate IV pain and sedative medications and general endotracheal intubation, the abdomen was prepped and draped in standard surgical fashion. A 1% lidocaine was used to anesthetize the overlying skin in the left upper abdominal quadrant and a transverse skin incision made using #15 blade. An 0 silk suture was applied to the medial aspect of the incision for retraction and a Veress needle inserted with a low opening pressure of 0 mmHg and the abdomen was then insufflated to 15 mmHg pressure. The Veress needle removed and a 5 mm XL trocar placed followed by a 5 mm 45-degree angle laparoscope visualized the peritoneal cavity. A 4-quadrant abdominal exploration was performed. There was slight gallbladder wall thickening consistent with a mild chronic acalculous cholecystitis. Under direct visualization, we then proceeded to place a supraumbilical 10 mm port after the skin and peritoneal lining were anesthetized using 0.5% Marcaine with epinephrine and a transverse skin incision made using a #15 blade. In a similar manner, a right upper abdominal quadrant 5 mm port was placed. The patient was then placed in reverse Trendelenburg position as well as plane right side up, left side down. The fundus of the gallbladder was then retracted anteriorly and superiorly and the fundal adhesions taken down using blunt dissection. The hepatoduodenal ligament was then dissected with blunt dissection as well as electrocautery using the hook instrument as well as the [place] dissector. The entire critical view of safety was identified including the triangle of Calot as well as the cystic duct and artery as the only 2 structures going into the gallbladder as well as the cystic plate behind the proximal gallbladder. A timeout was then taken and the cystic duct and artery were then clipped proximally and distally and cut with EndoShears. The gallbladder was then dissected off of the liver bed using cautery on the hook instrument with visualization of good hemostasis as well as no leaking ducts of Luschka. The gallbladder was removed through the 10 mm port site using an EndoCatch bag. The 10 mm port site fascia and peritoneum were then closed under direct visualization using a Darvin-Tye device and an 0 Vicryl suture. The abdomen was then desufflated and the remaining ports were removed. All skin incisions were closed using 4-0 Monocryl running subcuticular sutures. Wounds were then cleaned and covered with Dermabond. The patient tolerated the procedure well. We will start IV normal pain medication as well as a clear liquid diet. Once he is tolerating clears, has good pain control with oral pain medications, and ambulating well, we will discharge him home where he will be instructed to do no heavy lifting or exertion for the next 2 weeks. Job ID: [id number] DocumentID: [id number] Dictated Date: 02/10/2023 13:41:59 Safety Engineer Date: 02/10/2023 21:48:00 Dictated By: LINDA HURTADO MD
== END 2023-02-10 15:35 | disposition home or self-care (01) ==
LOC: SDC 10:23
PROVIDERS: ATTEND Surgery
DX: K82.8 Other specified diseases of gallbladder (principal); K81.1 Chronic cholecystitis; F17.210 Nicotine dependence, cigarettes, uncomplicated; Z28.310 Unvaccinated for COVID-19
CPT/HCPCS: 87081